=== PATIENT | male | born 1985 | race Two or more races ===

== ENCOUNTER → 2020-12-16 | Outpatient (CLI) | payer OTHER ==
[2020-12-16 08:37] LABS: BASO % 1 % (0-3); EOS # 0.2 x10^3/uL (0.0-0.7); EOS % 3 % (0-3); HEMATOCRIT 42.1 % (39.0-53.0); HEMOGLOBIN 14.5 g/dL (13.0-17.5); LYMPH # 2.2 x10^3/uL (1.0-4.8); LYMPH % 38 % (24-48); MEAN CORPUSCULAR HEMOGLOBIN 28 pg (25-35); MEAN CORPUSCULAR HGB CONC 34 g/dL (31-37); MEAN CORPUSCULAR VOLUME 82 fL (79-100); MONO # 0.5 x10^3/uL (0.0-1.1); MONO % 8 % (0-9); NEUT % 51 % (31-73); PLATELET COUNT 344 x10^3/uL (140-400); RED BLOOD COUNT 5.16 x10^6/uL (4.30-5.70); RED CELL DISTRIBUTION WIDTH 13.7 % (11.5-14.5); WHITE BLOOD COUNT 5.9 x10^3/uL (4.0-11.0)
[2020-12-16 08:56] LABS: ALBUMIN 4.2 g/dL (3.4-5.0); ALBUMIN/GLOBULIN RATIO 1.2 (1.0-1.7); CALCIUM 8.9 mg/dL (8.5-10.1); CREATININE 0.9 mg/dL (0.7-1.3); POTASSIUM 4.4 mmol/L (3.5-5.1); TOTAL BILIRUBIN 0.4 mg/dL (0.2-1.0); TOTAL PROTEIN 7.6 g/dL (6.4-8.2)
[2020-12-16 08:57] LABS: CHOLESTEROL/HDL RATIO 4.9
== END ==
LOC: LAB 08:03
PROVIDERS: ATTEND Family Medicine
DX: Z13.220 Encounter for screening for lipoid disorders (principal); I10 Essential (primary) hypertension
CPT/HCPCS: 36415; 80053; 80061; 83721; 85025

== ENCOUNTER → 2021-09-08 | Outpatient (CLI) | payer OTHER ==
[~2021-09-08] MED LIST: GADOTERATE 7.5 MMOL/15ML VIAL. IVP ONE
[2021-09-08 10:29] LABS: ALBUMIN 4.2 g/dL (3.4-5.0); ALBUMIN/GLOBULIN RATIO 1.1 (1.0-1.7); CREATININE 0.9 mg/dL (0.7-1.3); GFR 94.4; POTASSIUM 4.1 mmol/L (3.5-5.1); TOTAL BILIRUBIN 0.5 mg/dL (0.2-1.0)
[2021-09-08 10:30] LABS: CHOLESTEROL/HDL RATIO 4.5
[2021-09-09 00:13] LABS: HEMOGLOBIN A1C 5.7 % (4.8-5.6)
--- NOTE | 2021-09-09 10:01 | RAD ---
EXAM: MRI ABDOMEN WITH AND WITHOUT CONTRAST. HISTORY: Liver mass. TECHNIQUE: MRI of the abdomen was performed before and after the intravenous administration of 15 mL Clariscan. COMPARISON: None available. FINDINGS: Liver: Hepatic parenchymal signal loss on opposed phase images indicates moderate to severe diffuse h epatic steatosis. An arterially enhancing lesion in hepatic segment 8 on series 9000 image 25 measure s 11 x 5 mm. On later series, it remains slightly hyperintense to hepatic parenchyma. There is sugges tion of a small central scar. It is minimally T2 hyperintense. Focal nodular hyperplasia is favored. Tiny T2 hyperintense lesions likely reflect cysts measuring <5 mm. There are no suspicious hepatic le sions. Biliary tree: The gallbladder is unremarkable. The common duct is not dilated. There are no suspiciou s pancreatic parenchymal lesions. The pancreatic duct is not dilated. Other findings: The kidneys, adrenal glands and spleen are unremarkable. IMPRESSION: 1. 11 mm arterially enhancing lesion within hepatic segment 8 most likely reflecting benign focal nod ular hyperplasia in the absence of known malignancy. Correlate for the site of concern. 2. Moderate to severe diffuse hepatic steatosis. Electronically signed by: Mauri Craft MD (09/09/2021 9:59 AM) [id number]
== END ==
LOC: MRI 09:27
PROVIDERS: ATTEND Family Medicine
DX: K76.0 Fatty (change of) liver, not elsewhere classified (principal); R16.0 Hepatomegaly, not elsewhere classified; K76.89 Other specified diseases of liver; R73.09 Other abnormal glucose; E78.5 Hyperlipidemia, unspecified
CPT/HCPCS: 36415; 74183; 80053; 80061; 83036; A9575